=== PATIENT | male | born 1985 | race Caucasian/White ===

== ENCOUNTER 2021-01-29 03:34 | Emergency (ER) | payer BC, OTHER ==
[~2021-01-29 03:34] MED LIST: Famotidine 20 MG/2 ML SDV ONE
[2021-01-29] MEDS ORDERED: Famotidine 20 MG/2 ML SDV IVPUSH ONE (04:13)
[2021-01-29] MEDS ORDERED: diphenhydrAMINE 50 MG/ML SDV IVPUSH ONE (04:13)
[2021-01-29] MEDS ORDERED: methylPREDNISolone Sodium Succinate 125 MG/2 ML SDV IVPUSH STA (04:13)
[2021-01-29] MEDS ORDERED: EPINEPHrine 1 MG/ML SDV IM ONE (04:13)
[2021-01-29] MEDS ORDERED: Cyclobenzaprine 10 MG Tab PO ONE (04:36)
[2021-01-29 06:17] VITALS: BP 118/77; PULSE 83
--- NOTE | 2021-01-29 07:35 | EDM.PDOC ---
ED HPI GENERAL MEDICAL PROBLEM - General Chief Complaint: Allergic Reaction Stated Complaint: allergic reaction Time Seen by Provider: 01/29/21 03:38 Lower Back Pain Score (Numeric/FACES): 6 - Related Data Allergies Allergy/AdvReac Type Severity Reaction Status Date / Time No Known Allergies Allergy Verified 01/29/21 03:47 Home Meds: Home Meds . [No Known Home Meds] 01/29/21 [History] Past Medical History - Past Health History Medical/Surgical History: Denies Medical/Surgical History Social & Family History - Tobacco Use Tobacco Use Status *Q: Never Tobacco User ED ROS ALLERGIC REACTION - Review of Systems Review Of Systems: Unable To Obtain Reason Not Obtained: Pt was seen by Linda Gallardo. See their documentation. ED EXAM GENERAL NO PERIP PULSE - Physical Exam Exam: Not Obtained Reason Not Obtained: See notes from Linda Gallardo for initial assessment. Course - Vital Signs Last Recorded V/S: Last Vital Signs Temp 98.4 F 01/29/21 06:17 Pulse 83 01/29/21 06:17 Resp 18 01/29/21 06:17 BP 118/77 01/29/21 06:17 Pulse Ox 95 01/29/21 06:17 - Orders/Labs/Meds Meds: Medications Discontinued Medications Generic Name Dose Route Start Last Admin Trade Name Freq PRN Reason Stop Dose Admin Cyclobenzaprine HCl 10 mg 01/29/21 04:36 01/29/21 04:44 Cyclobenzaprine 10 Mg Tab PO 01/29/21 04:37 10 mg ONETIME ONE Administration Diphenhydramine HCl 25 mg 01/29/21 04:13 01/29/21 03:45 Diphenhydramine 50 Mg/Ml Sdv IVPUSH 01/29/21 04:14 25 mg ONETIME ONE Administration Epinephrine HCl 0.3 mg 01/29/21 04:13 01/29/21 03:35 Epinephrine 1 Mg/Ml Sdv IM 01/29/21 04:14 0.3 mg ONETIME ONE Administration Famotidine Confirm 01/29/21 03:23 01/29/21 04:15 Famotidine 20 Mg/2 Ml Sdv Administered 01/29/21 03:24 Not Given Dose 20 mg .ROUTE .STK-MED ONE Famotidine 20 mg 01/29/21 04:13 01/29/21 03:50 Famotidine 20 Mg/2 Ml Sdv IVPUSH 01/29/21 04:14 20 mg ONETIME ONE Administration Methylprednisolone Sodium Succinate 125 mg 01/29/21 04:13 01/29/21 03:45 Methylprednisolone Sodium Succinate 125 Mg/2 Ml Sdv IVPUSH 01/29/21 04:14 125 mg NOW STA Administration - Re-Assessments/Exams Free Text/Narrative Re-Assessment/Exam: 01/29/21 0700 Informed by nursing staff that pt was an extended ER. Having been seen earlier for allergic reaction and treated via [facility] and was stable and they recommended that he be watched for several hours to ensure that it did not reoccur. Pt is sleeping when I arrived stating that he is feeling much better. Mild itching to his hands bilaterally. Denies any throat tightness, SOB or cough. No further GI symptoms noted. States that he feels weak but is able to get up and walk around. He continues to have some back pain and muscles spasms that started earlier in the evening. Lungs are clear to all, throat is not red or swollen. Abdomen is soft and non tender to touch. No rash or redness noted to skin. Alert and oriented. Pt is stable and will be discharged with steroids, and Pepcid. Will also give Flexeril for the back spasms. Follow up with PCP with new concerns or as needed. Departure - Departure Time of Disposition: 07:31 Disposition: Home, Self-Care 01 Condition: Good Clinical Impression: Allergic reaction Qualifiers: Encounter type: initial encounter Qualified Code(s): T78.40XA - Allergy, unspecified, initial encounter - Discharge Information *PRESCRIPTION DRUG MONITORING PROGRAM REVIEWED*: Not Applicable *COPY OF PRESCRIPTION DRUG MONITORING REPORT IN PATIENT JONH: Not Applicable Referrals: PCP,None [Primary Care Provider] - Forms: ED Department Discharge Additional Instructions: Prednisone 40 mg daily for 5 days Pepcid 20 mg daily for the next week Flexeril 10 mg up to 3 times a day for back spasms recheck with any new concerns. Sepsis Event Note (ED) - Evaluation Sepsis Screening Result: No Definite Risk - Problem List & Annotations (1) Allergic reaction SNOMED Code(s): 169322956 Code(s): T78.40XA - ALLERGY, UNSPECIFIED, INITIAL ENCOUNTER Status: Acute Qualifiers: Encounter type: initial encounter Qualified Code(s): T78.40XA - Allergy, unspecified, initial encounter - Problem List Review Problem List Initiated/Reviewed/Updated: Yes
== END 2021-01-29 07:39 | disposition home or self-care (01) ==
LOC: CC.ED 03:34
DX: T78.40XA Allergy, unspecified, initial encounter (principal)
CPT/HCPCS: 96372; 96374; 96375; 99283-25; A9270-GY; J0171; J1200; J2930; J3490